=== PATIENT | male | born 1975 | race Caucasian/White ===

== ENCOUNTER 2017-01-04 00:05 | Emergency (ER) | payer OTHER ==
[2017-01-04 00:36] LABS: BASO # 0.1 10_X3_uL (0.0-0.1); BASO % 0.5 % (0.2-1.2); EOS # 0.4 10_X3_uL (0.0-0.5); EOS % 3.8 % (0.8-7.0); GRAN # 5.4 10_X3_uL (1.8-5.4); GRAN % 58.3 % (34.0-67.9); HEMATOCRIT 41.8 % (40-51); HEMOGLOBIN 14.1 g/dL (13.7-17.5); LYMPH # 2.7 10_X3_uL (1.3-3.6); LYMPH % 29.5 % (21.8-53.1); MEAN CORPUSCULAR HEMOGLOBIN 28.8 pg (27.0-33.0); MEAN CORPUSCULAR HGB CONC 33.7 g/dL (32.0-36.0); MEAN CORPUSCULAR VOLUME 85.5 fL (79-92); MEAN PLATELET VOLUME 9.7 fl (7.5-11.5); MONO # 0.7 10_X3_uL (0.3-0.8); MONO % 7.9 % (5.3-12.2); PLATELET COUNT 290 x10_3/uL (163-337); RED BLOOD COUNT 4.89 x10_6/uL (4.6-6.1); RED CELL DISTRIBUTION WIDTH 14.3 % (11.6-14.4); WHITE BLOOD COUNT 9.3 x10_3/uL (4.2-9.1)
[2017-01-04 01:15] LABS: BLOOD UREA NITROGEN 12 mg/dL (7-18); CALCIUM 9.1 mg/dL (8.7-10.7); CARBON DIOXIDE 23 mmol/L (21-32); GLUCOSE,RANDOM 118 mg/dL (70-99)
[2017-01-04 01:20] LABS: POTASSIUM 4.1 mmol/L (3.5-5.1); SODIUM 139 mmol/L (136-145)
== END 2017-01-04 01:20 | disposition home or self-care (01) ==
LOC: ER 00:05
PROVIDERS: General Practice
DX: R07.89 Other chest pain (principal); J84.9 Interstitial pulmonary disease, unspecified; I10 Essential (primary) hypertension; R51 Headache; E66.9 Obesity, unspecified; F17.210 Nicotine dependence, cigarettes, uncomplicated; Z79.899 Other long term (current) drug therapy; Z88.0 Allergy status to penicillin
CPT/HCPCS: 36415; 71010; 80048; 85025; 93005; 99285-25